=== PATIENT | female | born 1960 | race Caucasian/White ===

== ENCOUNTER 2018-06-13 16:46 | Emergency (ER) | payer OTHER ==
[~2018-06-13] VITALS: Ht 160 cm; Wt 60.5 kg
[2018-06-13 18:05] LABS: HEMATOCRIT 43.7 % (37.0-47.0); HEMOGLOBIN 14.4 g/dL (12.5-16.0); MEAN CELL VOLUME 90 fl (78-100); MEAN CORPUSCULAR HEMOGLOBIN 30 pg (27-31); MEAN CORPUSCULAR HGB CONC 33 g/dL (33-37); MEAN PLATELET VOLUME 9.9 fl (7.4-10.4); PLATELET COUNT 272 K/mm3 (130-400); RED BLOOD COUNT 4.84 M/mm3 (4.10-5.30); RED CELL DISTRIBUTION WIDTH 13.6 % (11.5-14.5); WHITE BLOOD COUNT 12.7 K/mm3 (4.8-10.8)
[2018-06-13 18:09] LABS: ALBUMIN 4.7 g/dL (3.5-5.0); CALCIUM 9.5 mg/dL (8.4-10.2); POTASSIUM 4.4 mmol/L (3.6-5.0); TOTAL BILIRUBIN 0.6 mg/dL (0.2-1.3); TOTAL PROTEIN 8.3 g/dL (6.3-8.2)
[2018-06-13 18:46] LABS: PH-URINE 5.5 (5.0 - 8.0); URINE APPEARANCE HAZY; URINE BILIRUBIN NEGATIVE (NEGATIVE); URINE COLOR YELLOW; URINE GLUCOSE NEGATIVE (NEGATIVE); URINE KETONE 2+ (NEGATIVE); URINE NITRATE NEGATIVE (NEGATIVE); URINE PROTEIN(semi-quant) 1+ mg/dL (NEGATIVE); URINE UROBILINOGEN NORMAL (NORMAL)
[2018-06-13 18:47] LABS: URINE BLOOD 250 ery/uL (NEGATIVE); URINE LEUKOCYTE ESTERASE NEGATIVE (NEGATIVE); URINE MUCUS PRESENT (NOT PRESENT)
[2018-06-13 18:53] LABS: LYMPHOCYTE 3 % (20-51); MONOCYTE 2 % (3-10); NEUTROPHILS 95 % (42-75)
[2018-06-13] MEDS ORDERED: PERCOCET 325 MG1 TA2 PO (19:16)
[2018-06-13] MEDS ORDERED: PHENERGAN 25 TA25 MG PO (20:43)
[2018-06-13] MEDS ORDERED: BENTYL 20MG20 MG/TAB PO (20:45)
[2018-06-13] MEDS ORDERED: CEPHALEXIN500 M1 PO (20:50)
[2018-06-13 22:10] VITALS: BP 135/80
== END 2018-06-13 22:10 | disposition home or self-care (01) ==
LOC: ED 16:46
PROVIDERS: Nurse Practitioner Primary Care
DX: K52.9 Noninfective gastroenteritis and colitis, unspecified (principal); N39.0 Urinary tract infection, site not specified; C79.9 Secondary malignant neoplasm of unspecified site; C56.9 Malignant neoplasm of unspecified ovary; C18.1 Malignant neoplasm of appendix
CPT/HCPCS: A4216; J0696; J1630; J2270; J2550; J3010; J7030; Q9967

== ENCOUNTER → 2019-08-10 | Outpatient (CLI) | payer MEDICAID ==
[~2019-08-10] MED LIST: BENTYL 20MG20 MG/TAB PO; CEPHALEXIN500 M1 PO; PERCOCET 325 MG1 TA2 PO; PHENERGAN 25 TA25 MG PO
== END ==
LOC: RAD 08:59
DX: C18.1 Malignant neoplasm of appendix (principal); N63.10 Unspecified lump in the right breast, unspecified quadrant; N63.20 Unspecified lump in the left breast, unspecified quadrant; E04.1 Nontoxic single thyroid nodule; R19.07 Generalized intra-abdominal and pelvic swelling, mass and lump; K76.89 Other specified diseases of liver; D18.00 Hemangioma unspecified site
CPT/HCPCS: Q9967

== ENCOUNTER → 2019-09-11 | Outpatient (CLI) | payer MEDICAID | LOC: RAD 08:53 | DX: E04.1 Nontoxic single thyroid nodule (principal); C18.1 Malignant neoplasm of appendix ==

== ENCOUNTER → 2019-11-02 | Outpatient (CLI) | payer MEDICAID | LOC: RAD 10:00 | DX: C18.1 Malignant neoplasm of appendix (principal); C78.6 Secondary malignant neoplasm of retroperitoneum and peritoneum; N32.9 Bladder disorder, unspecified | CPT/HCPCS: Q9967 ==

== ENCOUNTER → 2020-03-25 | Outpatient (CLI) | payer MEDICAID ==
[2020-03-20 13:00] VITALS: BP 102/77
[~2020-03-25] MED LIST changes: +CIPRO 500MG TA500 MG PO; +COLACE100 M1 PO; +LORAZEPAM0.5 M1 PO; +MAGIC MOUTHWASH1 M1 PO; +ONDANSETRON ODT8 MG PO; +POTASSIUM CHLO480 ML PO; +PROMETHEGAN25 MG RC; +ROXICODONE 55 MG/TAB PO; +[UNRECOGNIZED DRUG - OTHER] TOP
== END ==
LOC: RAD 10:00
DX: C18.1 Malignant neoplasm of appendix (principal); Z90.710 Acquired absence of both cervix and uterus; Z90.89 Acquired absence of other organs
CPT/HCPCS: Q9967

== ENCOUNTER → 2020-03-26 | Outpatient (CLI) | payer MEDICAID ==
[2020-03-25 13:33] VITALS: BP 103/75
[2020-03-26 13:18] LABS: HEMATOCRIT 36.6 % (37.0-47.0); HEMOGLOBIN 11.5 g/dL (12.5-16.0); MEAN CELL VOLUME 80 fl (78-100); MEAN CORPUSCULAR HEMOGLOBIN 25 pg (27-31); MEAN CORPUSCULAR HGB CONC 31 g/dL (33-37); MEAN PLATELET VOLUME 8.6 fl (7.4-10.4); PLATELET COUNT 308 K/mm3 (130-400); RED BLOOD COUNT 4.58 M/mm3 (4.10-5.30); WHITE BLOOD COUNT 7.8 K/mm3 (4.8-10.8)
[2020-03-26 13:23] LABS: RED CELL DISTRIBUTION WIDTH 18.5 % (11.5-14.5)
[2020-03-26 13:29] LABS: ALBUMIN 2.8 g/dL (3.5-5.0)
[2020-03-26 13:30] LABS: CALCIUM 8.5 mg/dL (8.3-10.5)
[2020-03-26 13:31] LABS: TOTAL PROTEIN 7.5 g/dL (6.4-8.3)
[2020-03-26 13:33] LABS: TOTAL BILIRUBIN 0.8 mg/dL (0.2-1.2)
[2020-03-26 13:37] LABS: MAGNESIUM 2.03 mg/dL (1.60-2.60)
[2020-03-26 13:39] LABS: POTASSIUM 2.5 mmol/L (3.5-5.1)
[2020-03-26 13:43] LABS: LYMPHOCYTE 12 % (20-51); MICROCYTOSIS 1+; MONOCYTE 9 % (3-10); NEUTROPHILS 78 % (42-75)
[2020-03-27 05:51] LABS: CA-125 889.5 U/mL (0.0-35.0)
== END ==
LOC: LAB 12:47
PROVIDERS: Internal Medicine
DX: C18.1 Malignant neoplasm of appendix (principal); C79.61 Secondary malignant neoplasm of right ovary

== ENCOUNTER 2020-03-27 15:00 | Outpatient (RCR) | payer MEDICAID ==
[2020-03-13 10:42] VITALS: BP 102/73
[2020-03-13 14:19] VITALS: BP 100/67
[2020-03-20 10:20] VITALS: BP 109/80
[2020-03-20 13:00] VITALS: BP 102/77
[2020-03-25 11:00] VITALS: BP 103/70
[2020-03-25 13:33] VITALS: BP 103/75
[~2020-03-27] VITALS: Ht 160 cm; Wt 52.3 kg
[2020-03-27 15:11] VITALS: BP 97/69
[2020-03-27 15:40] VITALS: BP 101/73
[2020-03-27 16:00] VITALS: BP 99/74
[2020-03-27 16:20] VITALS: BP 104/77
[2020-03-27 16:40] VITALS: BP 104/79
[2020-03-27 17:00] VITALS: BP 104/75
== END 2020-04-29 | disposition home or self-care (01) ==
LOC: AMSURD
DX: C18.1 Malignant neoplasm of appendix (principal); E87.6 Hypokalemia; E83.42 Hypomagnesemia
CPT/HCPCS: J3475; J3480